=== PATIENT | female | born 1985 | race African-American/Black ===

== ENCOUNTER 2017-03-07 09:00 | Emergency (ER) | payer SELFPAY ==
--- NOTE | ~2017-03-07 | CR126 ---
[facility] A Service of [facility] RADIOLOGY TEXT RESULTS PATIENT: WILFRIDO HUMPHREY LOCATION: CFTX : 89 UNIT #: [id number] AGE: [address]: Aparna Jurado SEX: F ORDER DR: [id number] [facility] [address] [place], [place] [address] [id number] E MR#: [id number] Acc #: [id number] NAME: WILFRIDO HUMPHREY : 1985 SEX: F STUDY DATE/TIME: 03/07/2017 10:08 UNIT: CFTX ROOM: STUDY DESCRIPTION: CR Foot Complete Min 3 View Lt Attending Physician: Aparna Jurado Pa-C Ordering Physician: Ed Jose Calderon M.D. Primary Care Physician: No Primary Care Physician MEDICAL IMAGING REPORT This report is preliminary unless electronic signature is present EXAM Left foot HISTORY Left foot pain and swelling medially near the great toe for the past 3 days. TECHNIQUE 3 views of the foot were obtained. FINDINGS There is a small plantar heel spur. There is no evidence of joint space narrowing, erosion, fracture, or bone destruction. No radiodense foreign bodies are seen. IMPRESSION Negative except for a small heel spur. Dictated by... Nazario Eckert M.D. THIS IS AN ELECTRONICALLY VERIFIED REPORT Nazario Eckert M.D. at 03/07/2017 3:46 PM RLFelipe/arleen TD: 03/07/2017 13:59 JOB #: [id number] MEDICAL IMAGING REPORT Page 1 of 1 COPY
== END 2017-03-07 10:50 | disposition home or self-care (01) ==
LOC: CED 09:00 → CFTX 09:00
DX: M77.51 Other enthesopathy of right foot and ankle (principal); Z98.890 Other specified postprocedural states
CPT/HCPCS: 73630; 99283